=== PATIENT | female | born 1985 | race American Indian/Alaskan Native ===

== ENCOUNTER 2022-04-12 08:52 | Emergency (ER) | payer SELFPAY ==
[2022-04-12 09:12] VITALS: BP 150/90
== END 2022-04-13 01:46 | disposition left against medical advice (07) ==
LOC: ED 08:52
DX: R11.2 Nausea with vomiting, unspecified (principal); Z53.21 Procedure and treatment not carried out due to patient leaving prior to being seen by health care provider